=== PATIENT | female | born 1935 | race Caucasian/White ===

== ENCOUNTER 2019-08-05 19:37 | Emergency (ER) | payer MEDICARE, BC ==
[~2019-08-05] VITALS: Ht 154.9 cm; Wt 54.0 kg
[~2019-08-05 19:37] MED LIST: ATOR10 PO; Advair Hfa 115-12 GM; CEFD300 PO; FLUT110OIA INH; INHALERS; LEVSOD75 PO; LOSA50 PO; OLME20 PO
== END 2019-08-05 21:35 | disposition home or self-care (01) ==
LOC: ER 19:37
DX: S52.572A Other intraarticular fracture of lower end of left radius, initial encounter for closed fracture (principal); W01.0XXA Fall on same level from slipping, tripping and stumbling without subsequent striking against object, initial encounter; Z79.899 Other long term (current) drug therapy; E78.00 Pure hypercholesterolemia, unspecified
CPT/HCPCS: 25605; 73110; 99283-25

== ENCOUNTER → 2020-08-26 | Outpatient (CLI) | payer MEDICARE, BC ==
[2020-08-26 22:14] LABS: Creatinine Urine 40.1 mg/dL (27.00-270.00)
== END | disposition home or self-care (01) ==
LOC: LAB SHORT 07:29 → LAB 07:29 → LAB FUT 08-22 08:05
PROVIDERS: Internal Medicine Nephrology
DX: N18.30 Chronic kidney disease, stage 3 unspecified (principal); D63.1 Anemia in chronic kidney disease
CPT/HCPCS: 81050; 82570